=== PATIENT | male | born 1935 | race Caucasian/White ===

== ENCOUNTER 2019-06-05 01:08 | Inpatient (IN) | payer MEDICARE, OTHER ==
[2019-06-05 01:47] LABS: #Basophils 0.1 thou/uL (0.0-0.2); #Eosinphils 0.5 thou/uL (0.0-0.7); #Lymphocytes 2.4 thou/uL (1.20-3.40); #Monocytes 0.7 thou/uL (0.11-0.59); #Neutrophils 3.7 thou/uL (1.40-6.50); %Basophils 0.8 % (0.0-1.0); %Eosinophils 6.3 % (0.0-10.0); %Lymphocytes 32.9 % (21.0-51.0); %Monocytes 9.3 % (0.0-10.0); %Neutrophils 50.7 % (42.0-75.0); Hemoglobin 17.7 g/dL (14.0-18.0); Mean Corpuscular HGB CONC 33.4 g/dL (32.0-36.0); Mean Corpuscular Hemoglobin 31.9 pg (27.0-31.0); Mean Corpuscular Volume 95.5 fL (78.0-98.0); Mean Platelet Volume 7.1 fL (7.4-10.4); Platelet Count 184 thou/uL (130-400); RBC Distribution Width 12.4 % (11.5-14.5); Red Blood Cell (RBC) Count 5.54 mill/uL (4.70-6.10); White Blood Cell (WBC) Count 7.3 thou/uL (4.8-10.8)
[2019-06-05 02:10] LABS: ALT (SGPT) 43 U/L (8-55); AST (SGOT) 37 U/L (5-34); Albumin 4.4 g/dL (3.4-4.8); Alkaline Phosphatase 104 U/L (40-110); Anion Gap 17 mmol/L (10-20); BUN (Urea Nitrogen) 20 mg/dL (8.4-25.7); Bilirubin, Total 0.6 mg/dL (0.2-1.2); Calc. Creatinine Clearance 0 mL/min (70-130); Calcium 9.7 mg/dL (7.8-10.44); Carbon Dioxide 24 mmol/L (23-31); Chloride 106 mmol/L (98-107); Estimated GFR-MDRD 46; Globulin 3.5 g/dL (2.4-3.5); Glucose 110 mg/dL (83-110); Protein, Total 7.9 g/dL (5.8-8.1); Sodium 143 mmol/L (136-145)
[2019-06-05 06:46] VITALS: BMI 27.5
[2019-06-05] MEDS ORDERED: Acetaminophen 325 MG TAB PO PRN (07:20)
[2019-06-05] MEDS ORDERED: Ondansetron PF 4 MG/2 ML Vial IVP PRN (07:20)
[2019-06-05] MEDS ORDERED: hydrALAZINE 20 MG/ML VIAL SLOW IVP PRN (07:22)
[2019-06-05] MEDS: Dextrose 5 % And 0.9 % NaCl 1,000 ML IV SCH ×2 (08:37→20:01)
--- NOTE | 2019-06-05 09:20 | CT ---
PRELIMINARY REPORT/[facility]/EMERGENCY AFTER HOURS PROCEDURE: Receipt of this report by the clinical staff was confirmed with GILDARDO MONTE MD by Ashia Moody on Jun 05, 2019 03:17:00 [facility] [employer] [facility] [employer] [facility]. Addendum electronically signed by Ashia Moody on June 05, 2019 3:18:15 AM [facility] [employer] [facility] EXAM: CT ABDOMEN PELVIS W CON HISTORY: M39 presents to EDPt reports 2 episodes of rectal bleeding, no clots. Pt reports he has had similar sx before, 13 years ago. Last colonoscopy 13 years ago showed diverticulitis, had surgery for bowel resection. Denies any abdominal pain, N/V, fevers or chills, or any other complaints. COMPARISON: None FINDINGS: Extensive coronary artery calcifications. No pericardial effusion. No pleural effusions. No acute abnormality of the liver or gallbladder. The portal system is patent. No acute abnormality of the spleen or pancreas. No adrenal nodules. No renal or ureteral stone. No hydronephrosis or hydroureter. No bowel obstruction. Diffuse colonic diverticulosis. No robust pericolonic inflammatory change to suggest acute diverticu litis. Linear regions of intraluminal hyperdensity within the fluid-filled distal descending and sigmoid col ons, most compatible with blood products (image 63 and 79 of series 601). The rectum is fluid-filled. No focal fluid collections or free intraperitoneal air. Atherosclerotic vascular calcifications and soft plaque within the abdominal aorta and proximal iliac arteries, without evidence for aneurysm or dissection. No acute osseous abnormality. IMPRESSION: 1. Constellation of findings most compatible with active sigmoid colon diverticular hemorrhage. Rec ommend GI or general surgery consultation. 2. Extensive coronary artery calcifications. Atherosclerosis of the aorta. ELECTRONICALLY SIGNED BY: Nicolette Lewis MD Jun 05, 2019 3:10:32 AM [facility] [employer] [facility] This report is intended for review by the ordering physician only, in accordance of law. If you recei ve this report in error, please call [facility] at [phone]. FINAL REPORT EMERGENCY AFTER HOURS CT ABDOMEN AND PELVIS WITH CONTRAST: FINDINGS/IMPRESSION: I agree with the findings and impression given in the preliminary report per [facility] physici an. There is diverticulosis. High density within the colon may represent an area of active bleeding.
[2019-06-05 11:20] LABS: #Eosinphils 0.3 thou/uL (0.0-0.7); #Lymphocytes 1.3 thou/uL (1.20-3.40); #Monocytes 0.5 thou/uL (0.11-0.59); #Neutrophils 3.8 thou/uL (1.40-6.50); %Basophils 0.8 % (0.0-1.0); %Lymphocytes 21.8 % (21.0-51.0); %Monocytes 8.7 % (0.0-10.0); %Neutrophils 63.7 % (42.0-75.0); Hemoglobin 13.9 g/dL (14.0-18.0); Mean Corpuscular HGB CONC 33.5 g/dL (32.0-36.0); Mean Corpuscular Hemoglobin 32.2 pg (27.0-31.0); Mean Corpuscular Volume 96.1 fL (78.0-98.0); Mean Platelet Volume 7.3 fL (7.4-10.4); Platelet Count 167 thou/uL (130-400); RBC Distribution Width 12.2 % (11.5-14.5); Red Blood Cell (RBC) Count 4.32 mill/uL (4.70-6.10)
[2019-06-05 11:40] LABS: Anion Gap 12 mmol/L (10-20); BUN (Urea Nitrogen) 16 mg/dL (8.4-25.7); Calc. Creatinine Clearance 62 mL/min (70-130); Calcium 8.2 mg/dL (7.8-10.44); Carbon Dioxide 24 mmol/L (23-31); Chloride 111 mmol/L (98-107); Estimated GFR-MDRD 64; Glucose 120 mg/dL (83-110); Potassium 4.2 mmol/L (3.5-5.1); Sodium 143 mmol/L (136-145)
[2019-06-05] MEDS ORDERED: Iopamidol-370 76% 500 ML 1 ML ONE (12:16)
[2019-06-05] MEDS ORDERED: Sodium Chloride 0.9% (PF) 10 ML VIAL FS PRN (14:33)
--- NOTE | 2019-06-05 15:12 | HP ---
CHIEF COMPLAINT: Bright blood per rectum. HOSPITAL COURSE: The patient is an 83-year-old male, with a past medical history of hypertension and diverticular bleed requiring surgical intervention, who presents to the hospital with complaints of rectal bleed x1 day. The patient stated that last night when he went to the bathroom, he noticed some liquid stool and noted that there was blood. The patient stated that he has had this episodes before, so he came into the ER for further evaluation. The patient had about 3 episodes in the ER. No clots were noted according to the patient and he has had another 2 or 3 episodes while he has been on the floor. The patient denies any dizziness, nausea, vomiting, or diarrhea. He has had a colonoscopy. Last colonoscopy was about 13 years ago. The patient states that he has had about 4 or 5 bouts of diverticulosis in the past. The patient has had only one major one about 30 years ago, for which he had to have a colectomy. The patient's last colonoscopy was about 13 years ago. PAST MEDICAL HISTORY: He has a history of hypertension and diverticulosis. PAST SURGICAL HISTORY: He has had a colectomy. SOCIAL HISTORY: He smokes a pipe. No alcohol use. No drug use. He is a full code. REVIEW OF SYSTEMS: All negative except for the ones mentioned above in the HPI. ALLERGIES: NO KNOWN DRUG ALLERGIES. MEDICATIONS: He takes none. PHYSICAL EXAMINATION: VITAL SIGNS: Temperature of 98.8, heart rate of 100, and blood pressure 145/100. GENERAL: He is awake, alert, and oriented x3. Does not appear in distress. HEENT: Normocephalic and atraumatic. No lymphadenopathy noted. Pupils are equal and reactive to light. CV: S1 and S2 present. No murmurs, rubs, or gallops. LUNGS: Clear to auscultation. No rhonchi or wheezes noted. ABDOMEN: Soft and nontender. Bowel sounds are present x2. EXTREMITIES: No edema. Pedal pulses are present x2. NEUROVASCULAR: There were no focal deficits noted. SKIN: No cuts, lesions, or bruises noted. LABORATORY RESULTS: WBCs of 6.0, hemoglobin of 13.9, hematocrit of 41.5, and his platelets of 167. Sodium of 143, potassium of 4.2, BUN of 16, creatinine of 1.09, and glucose was 120. He did have a CT of abdomen and pelvis, which indicated a constellation of findings most compatible with active sigmoid colon diverticular hemorrhage. Extensive coronary artery calcification also noted. ASSESSMENT AND PLAN: The patient is a very pleasant 83-year-old male, who presents to the hospital with complaints of rectal bleed. 1. Diverticular bleed. The patient has had multiple episodes in the past, one requiring colectomy. We will go ahead and keep him n.p.o. We will check H and H every 6 hours. We will type and screen him. We will also get GI to come see this patient. He may require either IR procedure versus colonoscopy. I will hold off on getting a surgical recommendation as of yet for now. If GI feels appropriate, may recommend also surgical evaluation. The patient is again n.p.o. We will put the patient on a PPI and Tylenol for pain. However, the patient has no pain and monitor the patient. 2. Deep venous thrombosis prophylaxis. We will put the patient on SCDs given his current history of bleeds. 3. Acute blood loss anemia, most likely secondary to his diverticular bleed. We will continue to monitor. Job ID: [id number]
[2019-06-05] MEDS: Pantoprazole 40 MG VIAL IVP SCH (15:55)
[2019-06-05 17:15] LABS: Hemoglobin 13.6 g/dL (14.0-18.0)
[2019-06-05] MEDS ORDERED: GoLYTELY 4,000 ml Bottle PO SCH (17:30)
--- NOTE | 2019-06-05 22:34 | CON ---
DATE OF CONSULTATION: 06/05/2019 CHIEF COMPLAINT: Blood in stool. HISTORY OF PRESENT ILLNESS: Mr. Ma is an 83-year-old man, who has had multiple episodes of diverticular bleeding in the past. His last episode was around 13 years ago and he is not sure, but he thinks he might have required a blood transfusion at that time. His last colonoscopy was 13 years ago. He has had no recent problems, but yesterday evening, he developed 3 liquid bloody stools and then 2 more today, but it seems to be tapering off later in the day today. He has had no abdominal pain or cramping associated with this. No preceding diarrhea. He normally has a soft brown bowel movement daily. No rectal pain. No nausea, vomiting, or reflux symptoms. No fever. He did have a colon resection 30 years ago for diverticulitis. PAST MEDICAL HISTORY: Hypertension, diverticular bleeding and diverticulitis. PAST SURGICAL HISTORY: Partial colon resection, tonsillectomy. SOCIAL HISTORY: Smokes a pipe daily. No alcohol or drugs. FAMILY HISTORY: Negative for GI malignancy. ALLERGIES: NO KNOWN DRUG ALLERGIES. MEDICATIONS: Prior to admission, none. REVIEW OF SYSTEMS: Negative x10 systems reviewed, except as stated in history of present illness. PHYSICAL EXAMINATION: VITAL SIGNS: Temperature 98.5, pulse 71, blood pressure 134/86. GENERAL: He is in no acute distress. Alert and oriented x3. HEENT: Eyes have no scleral icterus. Oropharynx is clear without lesions. No cervical or supraclavicular lymphadenopathy. LUNGS: Clear to auscultation bilaterally. HEART: Regular rate and rhythm without murmur. ABDOMEN: Soft, nontender, and nondistended. Bowel sounds are present. EXTREMITIES: No lower extremity edema. Cranial nerves are grossly intact. LABORATORY DATA: White blood cell count 6.0, hemoglobin is 13.9 today, this is down from 17.7 on initial presentation. Platelets 167. Creatinine is 1.09, down from 1.46 earlier this morning. Bilirubin 0.6, AST 37, ALT 43, albumin 4.4. IMPRESSION: 1. Gastrointestinal bleed most consistent with a recurrent diverticular bleed. 2. Mild anemia of acute blood loss. We will follow the trend of the hemoglobin tomorrow. RECOMMENDATIONS: Colonoscopy tomorrow. Job ID: [id number]
[2019-06-06] MEDS: Pantoprazole 40 MG VIAL IVP SCH ×2 (03:43→15:03)
[2019-06-06 05:24] LABS: #Eosinphils 0.4 thou/uL (0.0-0.7); #Monocytes 0.6 thou/uL (0.11-0.59); #Neutrophils 3.5 thou/uL (1.40-6.50); %Basophils 0.4 % (0.0-1.0); %Eosinophils 6.8 % (0.0-10.0); %Lymphocytes 30.4 % (21.0-51.0); %Monocytes 9.1 % (0.0-10.0); %Neutrophils 53.3 % (42.0-75.0); Mean Corpuscular HGB CONC 33.9 g/dL (32.0-36.0); Mean Corpuscular Volume 97.6 fL (78.0-98.0); Mean Platelet Volume 7.2 fL (7.4-10.4); Platelet Count 158 thou/uL (130-400); RBC Distribution Width 12.2 % (11.5-14.5); Red Blood Cell (RBC) Count 3.92 mill/uL (4.70-6.10); White Blood Cell (WBC) Count 6.6 thou/uL (4.8-10.8)
[2019-06-06 05:45] LABS: Anion Gap 12 mmol/L (10-20); BUN (Urea Nitrogen) 14 mg/dL (8.4-25.7); Calc. Creatinine Clearance 72 mL/min (70-130); Calcium 8.2 mg/dL (7.8-10.44); Carbon Dioxide 24 mmol/L (23-31); Chloride 111 mmol/L (98-107); Estimated GFR-MDRD 76; Glucose 97 mg/dL (83-110); Potassium 3.7 mmol/L (3.5-5.1); Sodium 143 mmol/L (136-145)
[2019-06-06] MEDS: Dextrose 5 % And 0.9 % NaCl 1,000 ML IV SCH ×2 (09:17→20:36)
[2019-06-06] MEDS ORDERED: ePHEDrine/0.9% NaCl/PF SYRINGE 50 mg/10 ml ONE (09:51)
[2019-06-06] MEDS ORDERED: PROPOFOL 200 MG/20 ML VIAL ONE (09:51)
[2019-06-06] MEDS ORDERED: Lidocaine 1% PF 5 ML VIAL ONE (09:51)
--- NOTE | 2019-06-06 18:46 | PDOC.HOSPP ---
- Subjective Encounter Date: 06/06/19 Encounter Time: 10:11 Subjective: pt up in bed still have rectal bleeding - Objective Vital Signs & Weight: Vital Signs (12 hours) Temp Pulse Resp BP Pulse Ox 06/06/19 11:21 97.9 F 83 18 162/92 H 98 06/06/19 08:00 95 06/06/19 07:53 97.9 F 70 16 163/86 H 95 Weight Weight 191 lb 12.8 oz I&O: 06/05/19 06/06/19 06/07/19 06:59 06:59 06:59 Intake Total 3900 Balance 3900 Result Diagrams: 06/06/19 04:55 06/06/19 04:56 Hospitalist ROS - Review of Systems Respiratory: denies: cough, dry, shortness of breath, hemoptysis, SOB with excertion, pleuritic pain, sputum, wheezing, other Cardiovascular: denies: chest pain, palpitations, orthopnea, paroxysmal noc. dyspnea, edema, light headedness, other Gastrointestinal: denies: nausea, vomiting, abdominal pain, diarrhea, constipation, melena, hematochezia, other - Medication Medications: Active Medications Generic Name Dose Route Start Last Admin Trade Name Freq PRN Reason Stop Dose Admin Dextrose/Sodium Chloride 1,000 mls @ 75 mls/hr 06/05/19 07:30 06/06/19 09:17 D5 0.9% Ns IV 1,000 mls .[id number] ANIVAL Administration Pantoprazole Sodium 40 mg 06/05/19 15:00 06/06/19 15:03 Protonix IVP Not Given 0300,1500 ANIVAL Sodium Chloride 10 ml 06/05/19 09:00 06/06/19 09:20 Flush - Normal Saline IVF Not Given Q12HR ANIVAL - Exam Neck: negative: supple, symmetric, no JVD, no thyromegaly, no lymphadenopathy, no carotid bruit, JVD Heart: negative: RRR, no murmur, no gallops, no rubs, normal peripheral pulses, irregular, diminshed peripheral pulses, murmur present, II/IV, III/IV Respiratory: negative: CTAB, no wheezes, no rales, no ronchi, normal chest expansion, no tachypnea, normal percussion, rales, rhonchi, tachypneic, wheezes Hosp A/P (1) Rectal bleeding Code(s): K62.5 - HEMORRHAGE OF ANUS AND RECTUM Status: Acute (2) Diverticulosis Code(s): K57.90 - DVRTCLOS OF INTEST, PART UNSP, W/O PERF OR ABSCESS W/O BLEED Status: Acute (3) HTN (hypertension) Code(s): I10 - ESSENTIAL (PRIMARY) HYPERTENSION Status: Acute (4) Anemia Code(s): D64.9 - ANEMIA, UNSPECIFIED Status: Acute - Plan pt to undergo colonoscopy today. His hh is stable will check on later today. Acute blood loss anemia.
[2019-06-06 19:06] LABS: #Eosinphils 0.2 thou/uL (0.0-0.7); #Lymphocytes 1.2 thou/uL (1.20-3.40); #Monocytes 0.5 thou/uL (0.11-0.59); #Neutrophils 3.4 thou/uL (1.40-6.50); %Basophils 0.6 % (0.0-1.0); %Eosinophils 4.7 % (0.0-10.0); %Lymphocytes 23.2 % (21.0-51.0); %Monocytes 8.6 % (0.0-10.0); Hemoglobin 11.4 g/dL (14.0-18.0); Mean Corpuscular HGB CONC 34.4 g/dL (32.0-36.0); Mean Corpuscular Hemoglobin 33.1 pg (27.0-31.0); Mean Corpuscular Volume 96.3 fL (78.0-98.0); Mean Platelet Volume 7.6 fL (7.4-10.4); Platelet Count 141 thou/uL (130-400); RBC Distribution Width 12.1 % (11.5-14.5); Red Blood Cell (RBC) Count 3.45 mill/uL (4.70-6.10); White Blood Cell (WBC) Count 5.3 thou/uL (4.8-10.8)
--- NOTE | 2019-06-06 22:07 | OP ---
DATE OF PROCEDURE: 06/06/2019 PROCEDURES PERFORMED: Colonoscopy with control of hemorrhage and snare polypectomy. PREOPERATIVE DIAGNOSIS: GI bleed and anemia. OPERATIVE NOTE: Informed consent was obtained from the patient. He was sedated with total intravenous anesthesia. The rectal exam was performed and it was normal. The colonoscope was advanced to the cecum, where the ileocecal valve and appendiceal orifice were clearly identified. There was no blood in the colon. The ileocecal valve and appendiceal orifice were clearly identified. 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 This was cauterized with argon plasma coagulation. There was a second 6 mm arteriovenous malformation in the ascending colon which was also cauterized with argon plasma coagulation. Good hemostasis was confirmed. A 5 mm polyp was removed from the cecum by cold snare. A 5 mm polyp was removed from the ascending colon by cold snare. A 5 mm polyp was removed from the hepatic flexure by cold snare. A 1 cm transverse colon polyp was removed by hot snare in two pieces. This was treated with a hemoclip afterwards. Good hemostasis was confirmed. Three polyps were removed from the sigmoid colon measuring 5 mm. There was severe diverticulosis of the left colon. Moderate internal hemorrhoids were noted on retroflexed views. IMPRESSION: 1. 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 2. Three polyps were removed from the cecum, ascending colon, and hepatic flexure by cold snare. 3. A 1 cm transverse polyp was removed by snare cautery polypectomy in piecemeal. A hemoclip was placed over the polypectomy site. 4. Three polyps were removed from the sigmoid colon measuring 5 mm by cold snare. 5. Severe diverticulosis in the left colon. 6. Moderate internal hemorrhoids. 7. The acute bleeding that he came in with was most likely diverticular given his history. This could have been secondary to the arteriovenous malformations or even the hemorrhoids. There was no active bleeding now. RECOMMENDATIONS: 1. Await histopathology. 2. Advance diet. 3. He should be able to discharge home tomorrow morning if he is tolerating his oral diet well and he has no further bleeding. Job ID: [id number]
[2019-06-07] MEDS: Pantoprazole 40 MG VIAL IVP SCH (02:19)
[2019-06-07 05:37] LABS: #Eosinphils 0.4 thou/uL (0.0-0.7); #Lymphocytes 1.3 thou/uL (1.20-3.40); #Monocytes 0.4 thou/uL (0.11-0.59); #Neutrophils 2.8 thou/uL (1.40-6.50); %Basophils 0.3 % (0.0-1.0); %Eosinophils 7.3 % (0.0-10.0); %Lymphocytes 26.8 % (21.0-51.0); %Neutrophils 56.6 % (42.0-75.0); Hemoglobin 10.5 g/dL (14.0-18.0); Mean Corpuscular HGB CONC 33.7 g/dL (32.0-36.0); Mean Corpuscular Hemoglobin 32.2 pg (27.0-31.0); Mean Corpuscular Volume 95.6 fL (78.0-98.0); Mean Platelet Volume 6.9 fL (7.4-10.4); Platelet Count 133 thou/uL (130-400); Red Blood Cell (RBC) Count 3.27 mill/uL (4.70-6.10); White Blood Cell (WBC) Count 4.9 thou/uL (4.8-10.8)
--- NOTE | 2019-06-07 11:00 | PRG ---
DATE OF SERVICE: 06/07/2019 SUBJECTIVE: Mr. Ma feels well. He has tolerated solid food last night and this morning. He has had no stool output since the colonoscopy, but has been passing gas. He has no abdominal pain or nausea. OBJECTIVE: VITAL SIGNS: Temperature 98.7, pulse 85, blood pressure 150/82. GENERAL: He is in no acute distress. Alert and oriented x3. LUNGS: Clear to auscultation bilaterally. HEART: Regular rate and rhythm without murmur. ABDOMEN: Soft, nontender, nondistended. Bowel sounds are present. EXTREMITIES: No lower extremity edema. LABORATORY DATA: White blood cell count 4.9, hemoglobin is 10.5, down from 11.4 yesterday, platelets 133. Creatinine is 0.94. IMPRESSION: 1. Lower gastrointestinal bleed. He most likely had a diverticular hemorrhage, which is now resolved. He did have a couple of vascular ectasias in the ascending colon, which I cauterized with argon plasma coagulation. He also had internal hemorrhoids. I also removed 7 polyps from his colon. The acute bleed could have been from the arteriovenous malformations or hemorrhoids, but most likely was from the diverticulosis. Again, the bleeding is now resolved. 2. Anemia of acute blood loss. RECOMMENDATIONS: 1. Await histopathology from the colon polyps. 2. He should be ready to discharge home today. 3. Can follow up in GI Clinic as needed. Job ID: [id number]
[2019-06-07 12:32] VITALS: BP 167/79; TEMP 98.3
[2019-06-07] MEDS: Dextrose 5 % And 0.9 % NaCl 1,000 ML IV SCH (14:16)
--- NOTE | 2019-06-08 02:12 | DIS ---
DATE OF ADMISSION: 06/05/2019 DATE OF DISCHARGE: 06/07/2019 DISCHARGE DIAGNOSES: 1. Rectal bleeding, most likely secondary to diverticular versus ectasia. 2. Acute blood-loss anemia. HOSPITAL COURSE: The patient is a very pleasant 83-year-old male, who initially presented to the hospital with rectal bleeding. The patient had multiple episodes of rectal bleeding in the hospital and also at home. He does have a history of diverticulosis. The patient was seen by GI and underwent colonoscopy, which indicated he had two vascular ectasia in the ascending which was cauterized and also had some polyps removed. He also had severe diverticulosis, which most likely patient had bleed from diverticular versus vascular ectasia. However, there was no acute active bleeding that was noted on colonoscopy. The patient's diet was advanced and he did well. He denies any dizziness or lightheadedness. The patient was asked to come back to the hospital if his symptoms return. The patient's H and H did drop, but it was in the normal range and he was completely asymptomatic. The patient will be discharged home. He will follow up with his primary and also with GI for his results. He did have a CT of abdomen and pelvis, which indicated constellation of findings most compatible with active sigmoid colon diverticular hemorrhage and extensive coronary artery calcification. HOME MEDICATIONS: He takes none at home. PHYSICAL EXAMINATION: VITAL SIGNS: Temperature of 98.3, 84, 20, 98% on room air, 167/79. GENERAL: He is awake, alert, and oriented x3, does not appear in distress. CV: S1, S2 present. No murmurs, rubs, or gallops. ABDOMEN: Soft and nontender. Bowel sounds are present x2. The patient will be discharged home. He will follow up with his primary. I asked him to follow up with his primary to get an H and H checked this week and patient stated that he will. Job ID: [id number]
== END 2019-06-07 13:08 | disposition home or self-care (01) | DRG 378 ==
LOC: ERS 01:08 → SURG B 06:04
PROVIDERS: ADMIT Internal Medicine; ATTEND Internal Medicine
PROC: 0W3P8ZZ Control Bleeding in Gastrointestinal Tract, Via Natural or Artificial Opening Endoscopic (ICD-10-PCS; principal; 2019-06-03)
PROC: 0DBK8ZZ Excision of Ascending Colon, Via Natural or Artificial Opening Endoscopic (ICD-10-PCS; 2019-06-03)
PROC: 0DBL8ZZ Excision of Transverse Colon, Via Natural or Artificial Opening Endoscopic (ICD-10-PCS; 2019-06-03)
PROC: 0DBN8ZZ Excision of Sigmoid Colon, Via Natural or Artificial Opening Endoscopic (ICD-10-PCS; 2019-06-03)
PROC: 0DBH8ZZ Excision of Cecum, Via Natural or Artificial Opening Endoscopic (ICD-10-PCS; 2019-06-03)
DX: K57.31 Diverticulosis of large intestine without perforation or abscess with bleeding (principal); D62 Acute posthemorrhagic anemia; K55.21 Angiodysplasia of colon with hemorrhage; I10 Essential (primary) hypertension; F17.290 Nicotine dependence, other tobacco product, uncomplicated; K63.5 Polyp of colon; K64.8 Other hemorrhoids; Z90.49 Acquired absence of other specified parts of digestive tract
CPT/HCPCS: 36415; 74177; 80048; 80053; 85025; 86850; 86900; 86901; 88305; C9113; J2001; J2704; Q9967

== ENCOUNTER 2024-01-02 03:13 | Inpatient (IN) | payer MEDICARE ==
[2024-01-02 04:20] LABS: Actual Bicarbonate (HCO3a) 18.3 mEq/L (22-28); Base Excess (BEa) -6.9 mEq/L (-2.0 to +3.0); CO2 Tension 35.8 mmHg (35.0-45.0); Calcium, Ionized (arterial) 1.13 mmol/L (1.12-1.30); Hematocrit-ABG 39 % (42.0-52.0); Hemoglobin (Hb) 13.1 g/dL (14.0-18.0); Potassium - ABG Lab 3.59 mmol/L (3.70-5.30); pH, Arterial 7.327 (7.35-7.45)
[2024-01-02 05:05] LABS: Hemoglobin 13.5 g/dL (14.0-18.0); Mean Corpuscular HGB CONC 31.4 g/dL (32.0-36.0); Mean Corpuscular Volume 92.3 fL (78.0-98.0); Mean Platelet Volume 9.6 fL (7.4-10.4); Platelet Count 146 10x3/uL (130-400); RBC Distribution Width 17.8 % (11.5-14.5); Red Blood Cell (RBC) Count 4.66 mill/uL (4.70-6.10)
[2024-01-02 05:10] LABS: Bacteria/HPF None Seen HPF (None Seen); CAUTI Indications for Culture Alt mental st,lethar; RBC/HPF 0-3 HPF (0-3); Squamous Epithelial None Seen HPF (0-3); WBC/HPF None Seen HPF (0-3)
[2024-01-02 05:12] LABS: Bilirubin Negative (Negative); Blood, Urine Negative (Negative); Clarity Clear (Clear); Glucose, Urine (Dipstick) Normal (Negative); Ketone, Urine Negative (Negative); Leukocyte Negative Leu/uL (Negative); Nitrite Negative (Negative); Protein, Urine (Dipstick) Negative (Neg-Trace); Specific Gravity, Urine 1.017 (1.002-1.036); Urine Culture Reflex No No; Urobilinogen Normal mg/dL (Less than 2); pH, Urine 6.5 (5.0-9.0)
[2024-01-02] MEDS ORDERED: Pantoprazole 40 MG VIAL ONE (05:20)
[2024-01-02] MEDS ORDERED: Piperacillin/Tazobactam 3.375 GM VIAL ONE (05:20)
[2024-01-02] MEDS ORDERED: Sodium Chloride 0.9% 100 ML ONE (05:20)
[2024-01-02 05:28] LABS: ALT (SGPT) 34 U/L (8-55); AST (SGOT) 152 U/L (5-34); Albumin 2.8 g/dL (3.4-4.8); Alkaline Phosphatase 58 U/L (40-110); Anion Gap 19 mmol/L (10-20); BUN (Urea Nitrogen) 31 mg/dL (8.4-25.7); Calc. Creatinine Clearance 0 mL/min (70-130); Calcium 8.6 mg/dL (7.8-10.44); Carbon Dioxide 17 mmol/L (23-31); Chloride 112 mmol/L (98-107); Estimated GFR 47; Globulin 3.3 g/dL (2.4-3.5); Glucose 107 mg/dL (83-110); Potassium 3.7 mmol/L (3.5-5.1); Protein, Total 6.1 g/dL (5.8-8.1); Sodium 144 mmol/L (136-145)
[2024-01-02 05:29] LABS: Critical Call Chem Troponin I NUR.KB14
[2024-01-02] MEDS ORDERED: Ondansetron PF 4 MG/2 ML Vial IVP PRN (05:29)
[2024-01-02] MEDS ORDERED: Acetaminophen 325 MG TAB PER TUBE PRN (05:29)
[2024-01-02] MEDS ORDERED: Labetalol HCl 100 MG/20 ML VIAL SLOW IVP PRN (05:39)
[2024-01-02] MEDS ORDERED: niCARdipine 25 MG in Sodium Chloride 0.9% 250 ML 250 ML IVPB PRN ×2 (05:39→06:26)
[2024-01-02 05:48] LABS: Anisocytosis SLIGHT = 6-15 cells HPF (0-5); Band 45 % (5-11); Lymphocytes 16 % (21-51); Metamyelocyte 7 % (0-0); Monocytes 4 % (0-10); Neutrophil 29 % (42-75); Platelet Adequacy Comment Platelets Normal; Polychromasia MODERATE = 3-4 cells HPF (0-2)
[2024-01-02 06:08] LABS: INR-International Normal Ratio 1.3; PTT 34.9 sec (22.9-36.1); Prothrombin Time 16.3 sec (12.0-14.7)
[2024-01-02 06:30] LABS: Lactic Acid 6.4 mmol/L (0.5-2.2)
[2024-01-02] MEDS ORDERED: Dextrose 50% Abboject 50 ML SYRINGE SLOW IVP PRN (06:31)
[2024-01-02] MEDS ORDERED: Dextrose 5% in Water 1,000 ML IV PRN (06:31)
[2024-01-02] MEDS ORDERED: Glucagon 1 MG/ML KIT IM PRN (06:31)
[2024-01-02] MEDS ORDERED: Electrolyte Replacement Protocol 1 EACH FS SCH (06:31)
[2024-01-02] MEDS: Sodium Chloride 0.9% 1,000 ML IV SCH (06:55)
[2024-01-02 07:14] VITALS: BMI 23.8
[2024-01-02] MEDS: Piperacillin/Tazobactam 3.375 GM in Sodium Chloride 0.9% 100 ML IVPB SCH (08:51)
[2024-01-02 09:43] LABS: Troponin I 26.304 ng/mL (< 0.028)
[2024-01-02 11:52] LABS: Hematocrit 38.4 % (42.0-52.0); Hemoglobin 12.3 g/dL (14.0-18.0)
[2024-01-02 12:34] LABS: Troponin I 26.824 ng/mL (< 0.028)
[2024-01-02 15:19] VITALS: BMI 23.8
[2024-01-02] MEDS ORDERED: Iopamidol-370 76% 500 ML MDV (1 ML CHARGE) ONE (15:40)
[2024-01-02 19:00] LABS: Hematocrit 37.9 % (42.0-52.0); Hemoglobin 12.3 g/dL (14.0-18.0)
[2024-01-02] MEDS: Pantoprazole 40 MG VIAL IVP SCH (21:09)
[2024-01-03 04:17] LABS: Hematocrit 35.6 % (42.0-52.0); Hemoglobin 11.5 g/dL (14.0-18.0)
[2024-01-03 04:22] LABS: #Basophils Less than 0.03 10x3/uL (0.0-0.2); %Basophils 0.2 % (0.0-1.0); %Eosinophils 0.8 % (0.0-10.0); %Monocytes 9.7 % (0.0-10.0); Hematocrit 35.7 % (42.0-52.0); Hemoglobin 11.4 g/dL (14.0-18.0); Mean Corpuscular HGB CONC 31.9 g/dL (32.0-36.0); Mean Corpuscular Hemoglobin 29.8 pg (27.0-31.0); Mean Corpuscular Volume 93.5 fL (78.0-98.0); Mean Platelet Volume 10.4 fL (7.4-10.4); Platelet Count 111 10x3/uL (130-400); RBC Distribution Width 17.8 % (11.5-14.5); Red Blood Cell (RBC) Count 3.82 mill/uL (4.70-6.10)
[2024-01-03 04:40] LABS: ALT (SGPT) 40 U/L (8-55); AST (SGOT) 155 U/L (5-34); Albumin 2.3 g/dL (3.4-4.8); Alkaline Phosphatase 40 U/L (40-110); Anion Gap 14 mmol/L (10-20); BUN (Urea Nitrogen) 41 mg/dL (8.4-25.7); CK (CPK) 2102 U/L (30-200); Calc. Creatinine Clearance 39 mL/min (70-130); Calcium 8.1 mg/dL (7.8-10.44); Carbon Dioxide 19 mmol/L (23-31); Chloride 115 mmol/L (98-107); Estimated GFR 49; Globulin 2.8 g/dL (2.4-3.5); Glucose 88 mg/dL (83-110); Potassium 3.7 mmol/L (3.5-5.1); Protein, Total 5.1 g/dL (5.8-8.1); Sodium 144 mmol/L (136-145)
[2024-01-03 08:16] LABS: Actual Bicarbonate (HCO3a) 20.2 mEq/L (22-28); Base Excess (BEa) -3.5 mEq/L (-2.0 to +3.0); CO2 Tension 32.3 mmHg (35.0-45.0); Calcium, Ionized (arterial) 1.14 mmol/L (1.12-1.30); Carboxyhemoglobin (COHb) 0.3 gm% (0.0-3.0); Hematocrit-ABG 36 % (42.0-52.0); Hemoglobin (Hb) 12.1 g/dL (14.0-18.0); O2 Tension (PaO2), arterial 86.8 mmHg (> 60.0); Potassium - ABG Lab 3.79 mmol/L (3.70-5.30); pH, Arterial 7.414 (7.35-7.45)
[2024-01-03 08:17] LABS: ALV-art Gradient 158.025 mmHg (0-20); Puncture Site RRA
[2024-01-03] MEDS: Scopolamine 1 mg/72 hour Patch TD SCH (15:57)
[2024-01-03] MEDS: Glycopyrrolate 0.2 MG/ML 5 ML SYRINGE SLOW IVP SCH (15:58)
[2024-01-03] MEDS: Morphine 4 MG/ML VIAL SLOW IVP PRN (16:41)
[2024-01-03] MEDS: Lorazepam 2 MG/ML VIAL SLOW IVP PRN (16:45)
[2024-01-03] MEDS: Lorazepam 2 MG/ML VIAL ONE (16:45)
[2024-01-03] MEDS: Morphine 4 MG/ML VIAL ONE ×2 (16:48→17:05)
[2024-01-03 22:01] VITALS: BP 130/74; TEMP 98.3
== END 2024-01-04 02:58 | disposition expired | DRG 64 ==
LOC: ERS 03:13 → CCU 06:21 → MSONC 01-03 19:24
PROVIDERS: ADMIT Internal Medicine; ATTEND Internal Medicine
PROC: 5A1945Z Respiratory Ventilation, 24-96 Consecutive Hours (ICD-10-PCS; principal; 2024-01-02)
PROC: 4A1 Measurement and Monitoring, Physiological Systems, Monitoring (ICD-10-PCS; 2024-01-02)
PROC: 3E03329 Introduction of Other Anti-infective into Peripheral Vein, Percutaneous Approach (ICD-10-PCS; 2024-01-02)
DX: I61.5 Nontraumatic intracerebral hemorrhage, intraventricular (principal); G93.41 Metabolic encephalopathy; G93.6 Cerebral edema; I21.4 Non-ST elevation (NSTEMI) myocardial infarction; J69.0 Pneumonitis due to inhalation of food and vomit; J96.01 Acute respiratory failure with hypoxia; M62.82 Rhabdomyolysis; N17.9 Acute kidney failure, unspecified; G91.9 Hydrocephalus, unspecified; E87.20 Acidosis, unspecified; K92.0 Hematemesis; Z66 Do not resuscitate; Z51.5 Encounter for palliative care; I61.3 Nontraumatic intracerebral hemorrhage in brain stem; F17.210 Nicotine dependence, cigarettes, uncomplicated; I95.2 Hypotension due to drugs; T41.295A Adverse effect of other general anesthetics, initial encounter; E03.9 Hypothyroidism, unspecified; I71.43 Infrarenal abdominal aortic aneurysm, without rupture; N18.2 Chronic kidney disease, stage 2 (mild); I12.9 Hypertensive chronic kidney disease with stage 1 through stage 4 chronic kidney disease, or unspecified chronic kidney disease; E88.09 Other disorders of plasma-protein metabolism, not elsewhere classified; Z90.49 Acquired absence of other specified parts of digestive tract; Z98.890 Other specified postprocedural states
CPT/HCPCS: 36415; 36416; 36600; 51702; 70450; 71045; 71260; 72125; 74177; 80053; 81001; 82550; 82805; 83605; 83880; 84145; 84484; 85025; 85610; 85730; 86850; 86900; 86901; 87040; 87070; 87205; 93005; 94002; 94003; 94760; 96365; 96375; 99292; C9113; J2060; J2270; J2543; J3490; J7050; Q9967